=== PATIENT | male | born 1960 | race Hispanic/Latino ===

== ENCOUNTER 2022-03-12 19:02 | Emergency (ER) | payer SELFPAY ==
[2022-03-12 19:29] LABS: Hemoglobin 13.7 g/dL (14.0-18.0); Mean Corpuscular HGB CONC 32.2 g/dL (32.0-36.0); Mean Corpuscular Hemoglobin 30.8 pg (27.0-31.0); Mean Corpuscular Volume 95.6 fL (78.0-98.0); Platelet Count 65 thou/uL (130-400); RBC Distribution Width 12.3 % (11.5-14.5); Red Blood Cell (RBC) Count 4.47 mill/uL (4.70-6.10); White Blood Cell (WBC) Count 2.4 thou/uL (4.8-10.8)
[2022-03-12 19:30] LABS: #Lymphocytes 0.6 thou/uL (1.20-3.40); #Monocytes 0.3 thou/uL (0.11-0.59); #Neutrophils 1.4 thou/uL (1.40-6.50); %Basophils 1.6 % (0.0-1.0); %Eosinophils 0.5 % (0.0-10.0); %Lymphocytes 24.7 % (21.0-51.0); %Neutrophils 59.2 % (42.0-75.0); Manual Diff?? NO; Mean Platelet Volume 11.1 fL (7.4-10.4)
[2022-03-12 19:40] LABS: ALT (SGPT) 46 U/L (8-55); AST (SGOT) 58 U/L (5-34); Albumin 3.8 g/dL (3.5-5.0); Alcohol Less than 10 mg/dL (Less than 10); Alkaline Phosphatase 90 U/L (40-110); Anion Gap 14 mmol/L (10-20); BUN (Urea Nitrogen) 6 mg/dL (8.4-25.7); Bilirubin, Total 3.1 mg/dL (0.2-1.2); Calc. Creatinine Clearance 0 mL/min (70-130); Calcium 8.8 mg/dL (7.8-10.44); Carbon Dioxide 24 mmol/L (22-29); Chloride 102 mmol/L (98-107); Estimated GFR 111; Globulin 3.7 g/dL (2.4-3.5); Glucose 121 mg/dL (70-105); Lipase 28 U/L (8-78); Protein, Total 7.5 g/dL (6.0-8.3); Sodium 137 mmol/L (136-145)
[2022-03-12] MEDS ORDERED: Multivit, Adult Inj 10 ML VIAL ONE (19:54)
[2022-03-12] MEDS ORDERED: Thiamine HCl 200 MG/2 ML VIAL ONE (19:54)
[2022-03-12] MEDS ORDERED: Dextrose 5 %-0.45 % NaCl 1,000 ML ONE (19:54)
[2022-03-12] MEDS ORDERED: Lorazepam 2 MG/ML VIAL ONE (19:57)
[2022-03-12] MEDS ORDERED: chlordiazePOXIDE HCl 25 MG CAP PO SCH (20:00)
[2022-03-12 20:37] LABS: Amphetamine Not Detected (NotDetected); Barbiturates Screen Not Detected (NotDetected); Benzodiazepine Screen Not Detected (NotDetected); Cocaine Metabolite Screen Not Detected (NotDetected); Medtox Control Line Valid? VALID (VALID); Methadone Not Detected (NotDetected); Methamphetamine Not Detected (NotDetected); Opiate Screen Not Detected (NotDetected); Oxycodone Screen Not Detected (NotDetected); Phencyclidine (PCP) Not Detected (NotDetected); THC/Cannabinoid Screen Not Detected (NotDetected); Tricyclic Screen Not Detected (NotDetected)
[2022-03-12 21:52] LABS: SARS-CoV-2 NAA Rapid Test Not Detected (NotDetected)
== END 2022-03-13 00:47 | disposition short-term general hospital (02) ==
LOC: NAV ERS 19:02
DX: F10.239 Alcohol dependence with withdrawal, unspecified (principal); R56.9 Unspecified convulsions; D64.9 Anemia, unspecified; D69.6 Thrombocytopenia, unspecified; Z20.822 Contact with and (suspected) exposure to COVID-19
CPT/HCPCS: 70450; 80053; 80306; 80307; 83690; 85025; 96374; 96375; J2060; J3411; J7042; U0002

== ENCOUNTER → 2023-06-23 | Emergency (ER) | payer OTHER, SELFPAY ==
[~2023-06-23] MED LIST: Boostrix 0.5 ML (Tdap) VIAL (>/=7 yrs of age) ONE
== END ==
LOC: NAV ERS 00:06
DX: S01.01XA Laceration without foreign body of scalp, initial encounter (principal); F10.129 Alcohol abuse with intoxication, unspecified; I10 Essential (primary) hypertension; W22.8XXA Striking against or struck by other objects, initial encounter
CPT/HCPCS: 12002; 70450; 72125; 90471; 90715